=== PATIENT | male | born 1985 | race Caucasian/White ===

== ENCOUNTER 2018-01-12 21:36 | Emergency (ER) | payer MEDICAID ==
[~2018-01-12] VITALS: Ht 180.3 cm; Wt 78.0 kg
[2018-01-12 21:50] VITALS: BP 137/74
[2018-01-12] MEDS ORDERED: PENI500T2 PO (22:07)
== END 2018-01-12 22:24 | disposition home or self-care (01) ==
LOC: ER 21:36
DX: A49.1 Streptococcal infection, unspecified site (principal)
CPT/HCPCS: 99283

== ENCOUNTER 2023-10-19 19:20 | Inpatient (IN) | payer MEDICAID ==
[~2023-10-19] VITALS: Ht 185.4 cm; Wt 79.5 kg
[2023-10-19] MEDS ORDERED: fentaNYL/PF 50MCG/1 ML 2ML syringe IV ONE ×2 (19:30→20:10)
[2023-10-19] MEDS ORDERED: temazepam 15mg capsule PO PRN (21:00)
[2023-10-19 21:13] LABS: BASOPHILS % (AUTO) 0.2 % (0-1); EOSINOPHILS % (AUTO) 0.2 % (0-6); HEMATOCRIT 41.8 % (42.0-52.0); HEMOGLOBIN 13.9 g/dl (14.0-17.9); LYMPHOCYTES # (AUTO) 1.2 X10'3 (1.1-4.8); LYMPHOCYTES % (AUTO) 7.3 % (21-51); MEAN CORPUSCULAR HEMOGLOBIN 30.2 PG (27.0-31.0); MEAN CORPUSCULAR HGB CONC 33.3 g/dL (33.0-36.5); MEAN CORPUSCULAR VOLUME 90.8 FL (78-98); MEAN PLATELET VOLUME 6.7 FL (7.4-10.4); MONOCYTES # (AUTO) 0.9 X10'3 (0-0.9); MONOCYTES % (AUTO) 5.9 % (2-12); NEUTROPHILS # (AUTO) 13.8 X10'3 (1.8-7.7); NEUTROPHILS % (AUTO) 86.4 % (42-75); PLATELET COUNT 304 X10'3 (140-440)
[2023-10-19 21:25] LABS: APTT 25 SECONDS (22-32); PROTHROMBIN TIME 10.9 SECONDS (9.0-12.0)
[2023-10-19] MEDS ORDERED: ketamine 50 mg/ml 10ml vial IV ONE (21:25)
[2023-10-19 21:30] LABS: ALANINE AMINOTRANSFERASE 31 U/L (12-78); ALBUMIN 3.8 G/DL (3.4-5.0); ALBUMIN/GLOBULIN RATIO 1.2 (1.1-1.5); ALKALINE PHOSPHATASE 53 IU/L (46-116); ANION GAP 8 (8-16); ASPARTATE AMINO TRANSFERASE 28 U/L (10-37); BILIRUBIN,TOTAL 0.4 MG/DL (0.1-1.0); BLOOD UREA NITROGEN 18 MG/DL (7-18); CALCIUM 7.9 MG/DL (8.5-10.1); CHLORIDE 103 MMOL/L (99-107); GLUCOSE 119 MG/DL (70-104); POTASSIUM 3.8 MMOL/L (3.5-5.1); SODIUM 138 MMOL/L (135-145); TOTAL CARBON DIOXIDE 26.8 MMOL/L (24-32); eCRCL 128 ML/MIN; eGFR > 90 ML/MIN
[2023-10-19] MEDS ORDERED: HYDROmorphone 1 mg/ml syringe IV STA (22:33)
[2023-10-19] MEDS ORDERED: magnesium 4gm in 100ml NS 100 ML IV PRN (23:30)
[2023-10-19] MEDS ORDERED: magnesium 2GM in 50ml NS 50 ML IV PRN (23:30)
[2023-10-19] MEDS ORDERED: acetaminophen 325mg tablet PO PRN (23:30)
[2023-10-19] MEDS ORDERED: potassium Cl 20 mEq SR tablet PO PRN ×2 (23:30)
[2023-10-19] MEDS ORDERED: ondansetron/PF 4mg/2ml inj IV PRN (23:30)
[2023-10-19] MEDS ORDERED: mag hydrox/Alum hydrox/simeth 30ml oral suspension PO PRN (23:30)
[2023-10-19] MEDS ORDERED: potassium Cl 40MEQ/1/2NS 520ml 520 ML IV PRN (23:30)
[2023-10-19] MEDS ORDERED: magnesium Cl slow-release 64mg tablet PO PRN (23:30)
[2023-10-19] MEDS ORDERED: HYDROmorphone/PF 0.2 MG/ML SYRINGE IV PRN (23:40)
[2023-10-20] VITALS (20 sets, daily range): BP systolic 115–149; BP diastolic 69–96; PULSE 70–98; RESP 12–24; TEMP 97.5–98.6; O2SAT 96–100
[2023-10-20 00:49] LABS: URINE AMPHETAMINE SCREEN POSITIVE (Neg); URINE BARBITUATE SCREEN NEGATIVE (Neg); URINE BENZODIAZEPINES SCREEN NEGATIVE (Neg); URINE CANNABINOID SCREEN POSITIVE (Neg); URINE COCAINE SCREEN NEGATIVE (Neg); URINE METHADONE SCREEN NEGATIVE (Neg); URINE OPIATE SCREEN POSITIVE (Neg); URINE PHENCYCLIDINE SCREEN NEGATIVE (Neg)
[2023-10-20] MEDS ORDERED: ketorolac trometh. 30mg/ml inj. IV ONE (01:20)
[2023-10-20] MEDS ORDERED: normal saline 1000ml 1,000 ML IV SCH (01:50)
[2023-10-20] MEDS ORDERED: hydrALAZINE 20mg/ml inj. IV PRN ×2 (01:50→08:55)
[2023-10-20] MEDS: HYDROmorphone inj. 0.5 MG/0.5 ML DISP.SYRIN IV PRN ×2 (02:24→08:52)
[2023-10-20] MEDS: dextrose 5%-normal saline 1,000 ML IV SCH ×3 (02:33→23:11)
[2023-10-20] MEDS: nicotine 14mg patch - 24hr TD SCH ×2 (06:47→20:00)
[2023-10-20] MEDS ORDERED: BUPIVAcaine 2.5mg/ml inj 50ml vial (contains preservative) ONE (07:20)
[2023-10-20 07:25] LABS: MAGNESIUM 2.2 MG/DL (1.5-2.4); POTASSIUM 3.9 MMOL/L (3.5-5.1)
[2023-10-20] MEDS: K and/or MAG REPLACEMENT MC SCH ×2 (07:42→20:01)
[2023-10-20] MEDS: docusate sod 100mg capsule PO SCH ×2 (07:43→19:22)
[2023-10-20] MEDS: pantoprazole 40 MG vial IV SCH (07:45)
[2023-10-20] MEDS ORDERED: ondansetron/PF 4mg/2ml inj IV PRN (08:55)
[2023-10-20] MEDS ORDERED: labetalol 20mg/4ml (5mg/ml) syringe IV PRN (08:55)
[2023-10-20] MEDS ORDERED: morphine 2 MG/ML inj. syringe IV PRN (08:55)
[2023-10-20] MEDS ORDERED: fentaNYL/PF 50MCG/1 ML 2ML syringe IV PRN ×2 (08:55)
[2023-10-20] MEDS ORDERED: ringers solution, lacted 1,000 ML IV SCH (08:55)
[2023-10-20] MEDS ORDERED: morphine 4 MG/ML inj SYRINge IV PRN (08:55)
[2023-10-20] MEDS ORDERED: desflurane 240ml liquid inh. IH ONE (10:00)
[2023-10-20] MEDS ORDERED: dexamethasone sod phosphate 10mg/ml inj ONE (10:00)
[2023-10-20] MEDS ORDERED: MIDAZolam 1 MG/ML 5ML VIAL ONE (10:07)
[2023-10-20] MEDS ORDERED: fentaNYL /PF 50mcg/ml 5ml ampule ONE (10:07)
[2023-10-20] MEDS ORDERED: propofol inj 20 ML IV ONE (10:18)
[2023-10-20] MEDS ORDERED: ondansetron/PF 4mg/2ml inj ONE (10:18)
[2023-10-20] MEDS ORDERED: ceFAZolin 1000mg inj ONE ×2 (10:18)
[2023-10-20] MEDS ORDERED: LIDOcaine 2% (20mg/ml) 5ml vial ONE (10:18)
[2023-10-20] MEDS ORDERED: BUPIVAcaine 2.5mg/ml inj 50ml vial (contains preservative) SQ ONE (10:51)
[2023-10-20] MEDS ORDERED: HYDROcodone/acetaminophen 5mg/325mg tablet PO PRN (15:00)
[2023-10-20] MEDS: ceFAZolin/D5W- 1GM premix 50 ML IV SCH (16:07)
[2023-10-20] MEDS: HYDROcodone/acetaminophen 10/325mg tab PO PRN ×3 (16:16→23:09)
[2023-10-21] VITALS (7 sets, daily range): BP systolic 124–141; BP diastolic 66–84; PULSE 85–117; RESP 15–18; TEMP 97.6–98.6; O2SAT 95–97
[2023-10-21] MEDS: ceFAZolin/D5W- 1GM premix 50 ML IV SCH ×3 (00:10→15:24)
[2023-10-21] MEDS: HYDROcodone/acetaminophen 10/325mg tab PO PRN ×5 (04:22→23:02)
[2023-10-21 06:02] LABS: MAGNESIUM 1.9 MG/DL (1.5-2.4); POTASSIUM 3.8 MMOL/L (3.5-5.1)
[2023-10-21] MEDS: dextrose 5%-normal saline 1,000 ML IV SCH (07:55)
[2023-10-21] MEDS: nicotine 14mg patch - 24hr TD SCH (07:57)
[2023-10-21] MEDS: docusate sod 100mg capsule PO SCH ×2 (07:58→19:33)
[2023-10-21] MEDS: pantoprazole 40 MG vial IV SCH (07:58)
[2023-10-21] MEDS: K and/or MAG REPLACEMENT MC SCH ×2 (07:59→20:00)
[2023-10-21] MEDS: normal saline 1000ml 1,000 ML IV SCH ×2 (11:23→23:02)
[2023-10-22] MEDS: HYDROcodone/acetaminophen 10/325mg tab PO PRN ×5 (04:59→23:11)
[2023-10-22 06:40] VITALS: BP 141/86; PULSE 123; RESP 22; TEMP 97.7; O2SAT 96
[2023-10-22 07:07] LABS: BASOPHILS # (AUTO) 0.1 X10'3 (0-0.2); BASOPHILS % (AUTO) 0.7 % (0-1); EOSINOPHILS # (AUTO) 0.1 X10'3 (0-0.9); EOSINOPHILS % (AUTO) 1.2 % (0-6); HEMATOCRIT 27.1 % (42.0-52.0); HEMOGLOBIN 9.2 g/dl (14.0-17.9); LYMPHOCYTES # (AUTO) 1.5 X10'3 (1.1-4.8); LYMPHOCYTES % (AUTO) 16.2 % (21-51); MEAN CORPUSCULAR HEMOGLOBIN 31.1 PG (27.0-31.0); MEAN CORPUSCULAR VOLUME 91.3 FL (78-98); MEAN PLATELET VOLUME 7.1 FL (7.4-10.4); MONOCYTES # (AUTO) 1.1 X10'3 (0-0.9); MONOCYTES % (AUTO) 11.9 % (2-12); NEUTROPHILS # (AUTO) 6.3 X10'3 (1.8-7.7); PLATELET COUNT 233 X10'3 (140-440); RED BLOOD COUNT 2.97 X10'6 (4.70-6.10); RED CELL DISTRIBUTION WIDTH 12.7 % (11.5-14.5)
[2023-10-22 07:12] LABS: ALANINE AMINOTRANSFERASE 33 U/L (12-78); ALBUMIN 2.4 G/DL (3.4-5.0); ALBUMIN/GLOBULIN RATIO 0.8 (1.1-1.5); ALKALINE PHOSPHATASE 47 IU/L (46-116); ANION GAP 6 (8-16); ASPARTATE AMINO TRANSFERASE 62 U/L (10-37); BILIRUBIN,TOTAL 0.5 MG/DL (0.1-1.0); BLOOD UREA NITROGEN 7 MG/DL (7-18); BUN/CREATININE RATIO 8.8 (10.0-20.0); CALCIUM 8.1 MG/DL (8.5-10.1); CHLORIDE 102 MMOL/L (99-107); GLUCOSE 136 MG/DL (70-104); MAGNESIUM 1.7 MG/DL (1.5-2.4); PHOSPHORUS 2.8 MG/DL (2.3-4.5); SODIUM 135 MMOL/L (135-145); TOTAL CARBON DIOXIDE 26.9 MMOL/L (24-32); TOTAL PROTEIN 5.5 G/DL (6.4-8.2); eCRCL 144 ML/MIN; eGFR > 90 ML/MIN
[2023-10-22] MEDS: normal saline 1000ml 1,000 ML IV SCH ×2 (07:20→17:20)
[2023-10-22 08:00] VITALS: RESP 22; O2SAT 98
[2023-10-22] MEDS: pantoprazole 40 MG vial IV SCH (08:00)
[2023-10-22] MEDS: nicotine 14mg patch - 24hr TD SCH (08:00)
[2023-10-22] MEDS: K and/or MAG REPLACEMENT MC SCH ×2 (08:00→19:54)
[2023-10-22] MEDS: docusate sod 100mg capsule PO SCH ×2 (08:00→19:53)
[2023-10-22 10:00] VITALS: BP 129/62; PULSE 109; RESP 14; TEMP 97.9; O2SAT 97
[2023-10-22 18:30] VITALS: BP 139/76; PULSE 114; RESP 16; TEMP 97.1; O2SAT 97
[2023-10-22] MEDS: enoxaparin 40mg/0.4ml syringe SUBCUT SCH (19:53)
[2023-10-23] MEDS: HYDROcodone/acetaminophen 10/325mg tab PO PRN ×5 (03:10→21:03)
[2023-10-23] MEDS: normal saline 1000ml 1,000 ML IV SCH ×3 (03:20→23:20)
[2023-10-23 06:00] VITALS: BP 126/70; PULSE 76; TEMP 97.6
[2023-10-23 06:43] LABS: BASOPHILS # (AUTO) 0.1 X10'3 (0-0.2); EOSINOPHILS # (AUTO) 0.2 X10'3 (0-0.9); EOSINOPHILS % (AUTO) 2.6 % (0-6); HEMOGLOBIN 9.7 g/dl (14.0-17.9); LYMPHOCYTES # (AUTO) 1.5 X10'3 (1.1-4.8); LYMPHOCYTES % (AUTO) 20.9 % (21-51); MEAN CORPUSCULAR HEMOGLOBIN 31.2 PG (27.0-31.0); MEAN CORPUSCULAR HGB CONC 34.6 g/dL (33.0-36.5); MEAN CORPUSCULAR VOLUME 90.2 FL (78-98); MEAN PLATELET VOLUME 6.9 FL (7.4-10.4); MONOCYTES # (AUTO) 0.8 X10'3 (0-0.9); MONOCYTES % (AUTO) 11.2 % (2-12); NEUTROPHILS # (AUTO) 4.7 X10'3 (1.8-7.7); NEUTROPHILS % (AUTO) 64.3 % (42-75); PLATELET COUNT 283 X10'3 (140-440); RED BLOOD COUNT 3.11 X10'6 (4.70-6.10); RED CELL DISTRIBUTION WIDTH 12.8 % (11.5-14.5); WHITE BLOOD COUNT 7.3 X10'3 (4.5-11.0)
[2023-10-23 07:00] LABS: ALANINE AMINOTRANSFERASE 34 U/L (12-78); ALBUMIN 2.2 G/DL (3.4-5.0); ALBUMIN/GLOBULIN RATIO 0.6 (1.1-1.5); ALKALINE PHOSPHATASE 50 IU/L (46-116); ANION GAP 6 (8-16); ASPARTATE AMINO TRANSFERASE 60 U/L (10-37); BILIRUBIN,TOTAL 0.5 MG/DL (0.1-1.0); BLOOD UREA NITROGEN 9 MG/DL (7-18); BUN/CREATININE RATIO 12.9 (10.0-20.0); CALCIUM 8.3 MG/DL (8.5-10.1); CHLORIDE 102 MMOL/L (99-107); GLUCOSE 99 MG/DL (70-104); MAGNESIUM 1.8 MG/DL (1.5-2.4); PHOSPHORUS 3.3 MG/DL (2.3-4.5); POTASSIUM 4.2 MMOL/L (3.5-5.1); SODIUM 135 MMOL/L (135-145); TOTAL CARBON DIOXIDE 27.3 MMOL/L (24-32); TOTAL PROTEIN 5.8 G/DL (6.4-8.2); eCRCL 164 ML/MIN; eGFR > 90 ML/MIN
[2023-10-23] MEDS: nicotine 14mg patch - 24hr TD SCH (07:04)
[2023-10-23 08:00] VITALS: RESP 16; O2SAT 98
[2023-10-23] MEDS: K and/or MAG REPLACEMENT MC SCH ×2 (08:00→20:00)
[2023-10-23] MEDS: pantoprazole 40 MG vial IV SCH (09:51)
[2023-10-23 10:00] VITALS: BP 134/75; PULSE 95; RESP 17; TEMP 97.6; O2SAT 96
[2023-10-23] MEDS: magnesium hydroxide 30ml (MOM) UD suspension PO PRN (12:31)
[2023-10-23] MEDS: docusate sod 100mg capsule PO SCH ×2 (12:31→21:02)
[2023-10-23] MEDS ORDERED: NO HOME MEDS (16:12)
[2023-10-23 18:00] VITALS: BP 126/75; PULSE 107; RESP 14; TEMP 97.9; O2SAT 99
[2023-10-23] MEDS: enoxaparin 40mg/0.4ml syringe SUBCUT SCH (21:02)
[2023-10-23 22:00] VITALS: BP 155/79; PULSE 107; RESP 14; TEMP 98.7; O2SAT 96
[2023-10-24] MEDS: HYDROcodone/acetaminophen 10/325mg tab PO PRN ×3 (01:15→09:37)
[2023-10-24 05:00] VITALS: RESP 20; O2SAT 96
[2023-10-24 06:00] VITALS: BP 147/77; PULSE 109; RESP 16; TEMP 98; O2SAT 96
[2023-10-24 06:37] LABS: BASOPHILS # (AUTO) 0.1 X10'3 (0-0.2); EOSINOPHILS # (AUTO) 0.3 X10'3 (0-0.9); EOSINOPHILS % (AUTO) 4.6 % (0-6); HEMOGLOBIN 8.6 g/dl (14.0-17.9); LYMPHOCYTES # (AUTO) 1.4 X10'3 (1.1-4.8); LYMPHOCYTES % (AUTO) 24.9 % (21-51); MEAN CORPUSCULAR HEMOGLOBIN 30.9 PG (27.0-31.0); MEAN CORPUSCULAR HGB CONC 34.3 g/dL (33.0-36.5); MEAN CORPUSCULAR VOLUME 90.2 FL (78-98); MEAN PLATELET VOLUME 6.5 FL (7.4-10.4); MONOCYTES # (AUTO) 0.6 X10'3 (0-0.9); MONOCYTES % (AUTO) 11.4 % (2-12); NEUTROPHILS # (AUTO) 3.2 X10'3 (1.8-7.7); NEUTROPHILS % (AUTO) 58.1 % (42-75); PLATELET COUNT 304 X10'3 (140-440); RED BLOOD COUNT 2.78 X10'6 (4.70-6.10); RED CELL DISTRIBUTION WIDTH 12.6 % (11.5-14.5); WHITE BLOOD COUNT 5.6 X10'3 (4.5-11.0)
[2023-10-24 06:56] LABS: ALANINE AMINOTRANSFERASE 40 U/L (12-78); ALBUMIN/GLOBULIN RATIO 0.6 (1.1-1.5); ALKALINE PHOSPHATASE 51 IU/L (46-116); ANION GAP 4 (8-16); ASPARTATE AMINO TRANSFERASE 64 U/L (10-37); BILIRUBIN,TOTAL 0.6 MG/DL (0.1-1.0); BLOOD UREA NITROGEN 13 MG/DL (7-18); BUN/CREATININE RATIO 17.3 (10.0-20.0); CALCIUM 8.2 MG/DL (8.5-10.1); CHLORIDE 104 MMOL/L (99-107); CREATININE 0.75 MG/DL (0.60-1.10); GLUCOSE 101 MG/DL (70-104); PHOSPHORUS 3.6 MG/DL (2.3-4.5); POTASSIUM 4.3 MMOL/L (3.5-5.1); SODIUM 136 MMOL/L (135-145); TOTAL CARBON DIOXIDE 27.6 MMOL/L (24-32); TOTAL PROTEIN 5.6 G/DL (6.4-8.2); eCRCL 153 ML/MIN; eGFR > 90 ML/MIN
[2023-10-24 08:00] VITALS: RESP 16; O2SAT 98
[2023-10-24] MEDS: pantoprazole 40 MG vial IV SCH (08:00)
[2023-10-24] MEDS: docusate sod 100mg capsule PO SCH ×2 (08:00→20:05)
[2023-10-24] MEDS: K and/or MAG REPLACEMENT MC SCH ×2 (08:00→20:00)
[2023-10-24] MEDS: magnesium hydroxide 30ml (MOM) UD suspension PO PRN (08:00)
[2023-10-24] MEDS: nicotine 14mg patch - 24hr TD SCH (08:01)
[2023-10-24 10:00] VITALS: BP 140/77; PULSE 100; RESP 16; TEMP 97.6; O2SAT 97
[2023-10-24] MEDS: HYDROcodone/acetaminophen 5mg/325mg tablet PO PRN ×2 (13:28→20:05)
[2023-10-24 18:00] VITALS: BP 131/78; PULSE 102; RESP 18; TEMP 98.8; O2SAT 96
[2023-10-24] MEDS: enoxaparin 40mg/0.4ml syringe SUBCUT SCH (20:08)
[2023-10-24 22:00] VITALS: BP 134/68; PULSE 99; RESP 13; TEMP 97.9; O2SAT 97
[2023-10-25] MEDS ORDERED: HYDROcodone/acetaminophen 5mg/325mg tablet PO ONE (02:30)
[2023-10-25] MEDS: HYDROcodone/acetaminophen 5mg/325mg tablet PO PRN ×2 (02:36→07:46)
[2023-10-25 06:00] VITALS: BP 138/80; PULSE 95; RESP 13; TEMP 97.4; O2SAT 95
[2023-10-25 06:13] LABS: BASOPHILS % (AUTO) 0.6 % (0-1); EOSINOPHILS # (AUTO) 0.3 X10'3 (0-0.9); EOSINOPHILS % (AUTO) 3.8 % (0-6); HEMATOCRIT 25.8 % (42.0-52.0); HEMOGLOBIN 8.7 g/dl (14.0-17.9); LYMPHOCYTES # (AUTO) 1.3 X10'3 (1.1-4.8); LYMPHOCYTES % (AUTO) 19.1 % (21-51); MEAN CORPUSCULAR HEMOGLOBIN 30.7 PG (27.0-31.0); MEAN CORPUSCULAR HGB CONC 33.9 g/dL (33.0-36.5); MEAN CORPUSCULAR VOLUME 90.7 FL (78-98); MEAN PLATELET VOLUME 6.4 FL (7.4-10.4); MONOCYTES # (AUTO) 0.8 X10'3 (0-0.9); MONOCYTES % (AUTO) 11.8 % (2-12); NEUTROPHILS # (AUTO) 4.5 X10'3 (1.8-7.7); NEUTROPHILS % (AUTO) 64.7 % (42-75); PLATELET COUNT 376 X10'3 (140-440); RED BLOOD COUNT 2.84 X10'6 (4.70-6.10); RED CELL DISTRIBUTION WIDTH 12.7 % (11.5-14.5)
[2023-10-25 06:27] LABS: ALANINE AMINOTRANSFERASE 51 U/L (12-78); ALBUMIN 2.5 G/DL (3.4-5.0); ALBUMIN/GLOBULIN RATIO 0.8 (1.1-1.5); ALKALINE PHOSPHATASE 61 IU/L (46-116); ANION GAP 8 (8-16); ASPARTATE AMINO TRANSFERASE 77 U/L (10-37); BILIRUBIN,TOTAL 0.9 MG/DL (0.1-1.0); BLOOD UREA NITROGEN 16 MG/DL (7-18); CALCIUM 8.4 MG/DL (8.5-10.1); CHLORIDE 102 MMOL/L (99-107); CREATININE 0.64 MG/DL (0.60-1.10); GLUCOSE 93 MG/DL (70-104); PHOSPHORUS 4.1 MG/DL (2.3-4.5); POTASSIUM 4.1 MMOL/L (3.5-5.1); SODIUM 137 MMOL/L (135-145); TOTAL CARBON DIOXIDE 27.3 MMOL/L (24-32); TOTAL PROTEIN 5.6 G/DL (6.4-8.2); eCRCL 180 ML/MIN; eGFR > 90 ML/MIN
[2023-10-25] MEDS: K and/or MAG REPLACEMENT MC SCH (06:47)
[2023-10-25] MEDS ORDERED: pantoprazole 40mg Tablet.DR PO SCH (07:30)
[2023-10-25] MEDS: docusate sod 100mg capsule PO SCH (07:47)
[2023-10-25] MEDS: nicotine 14mg patch - 24hr TD SCH (07:49)
== END 2023-10-25 08:55 | disposition left against medical advice (07) | DRG 308 ==
LOC: ER 19:22 → ED HOLD 23:38 → ORTHO 4S 10-20 00:55
PROVIDERS: ADMIT Internal Medicine; ATTEND Family Medicine
PROC: 0QS706Z Reposition Left Upper Femur with Intramedullary Internal Fixation Device, Open Approach (ICD-10-PCS; principal; 2023-10-20 10:00)
DX: S72.22XA Displaced subtrochanteric fracture of left femur, initial encounter for closed fracture (principal); F19.10 Other psychoactive substance abuse, uncomplicated; Z53.21 Procedure and treatment not carried out due to patient leaving prior to being seen by health care provider; S72.142A Displaced intertrochanteric fracture of left femur, initial encounter for closed fracture; Z87.891 Personal history of nicotine dependence; Z88.5 Allergy status to narcotic agent; V00.131A Fall from skateboard, initial encounter; Y93.23 Activity, snow (alpine) (downhill) skiing, snowboarding, sledding, tobogganing and snow tubing; Y92.89 Other specified places as the place of occurrence of the external cause; Y99.8 Other external cause status
CPT/HCPCS: 36415; 71045; 73502; 76000; 80053; 80305; 83735; 84100; 84132; 85025; 85610; 85730; 86885; 86900; 86901; 87081; 93005; 97110; 97116; 97161; 97530; 99285; A4618; A6223; A6258; A7000; C1713; C9113; G0378; J0690; J1100; J1170; J1650; J1885; J2250; J2405; J2704; J3010; J3490; J7030; J7042; J7120